=== PATIENT | male | born 1950 | race Caucasian/White ===

== ENCOUNTER 2020-12-30 12:23 | Emergency (ER) | payer OTHER ==
[~2020-12-30] VITALS: Ht 182.9 cm; Wt 104.3 kg
[2020-12-30] MEDS ORDERED: AMLODIPINE BESY10 MG PO (12:49)
[2020-12-30] MEDS ORDERED: CLOPIDOGREL75 MG PO (12:49)
[2020-12-30] MEDS ORDERED: ATORVASTATIN CA10 MG PO (13:05)
[2020-12-30] MEDS ORDERED: CARVEDILOL 25MG25 MG PO (13:05)
[2020-12-30] MEDS ORDERED: LISINOPRIL20 MG PO (13:06)
[2020-12-30] MEDS ORDERED: VITAMIN D21250 MCG PO (13:07)
[2020-12-30] MEDS ORDERED: ASPIRIN EC81 MG PO (13:08)
[2020-12-30 13:11] LABS: BASOPHIL 0.8 % (0-2); EOSINOPHIL 0.4 % (0-7); HCT 39.6 % (42.0-52.0); HGB 14.3 g/dl (13.2-18.0); LYMPHOCYTE 11.4 % (15-48); MCH 32.8 pg (25.0-31.0); MCHC 36.1 g/dL (32.0-36.0); MCV 90.8 fL (78.0-100.0); MONOCYTE 6.3 % (0-12); MPV 10.1 fL (6.0-9.5); NEUTROPHIL 79.1 % (41-80); NRBC 0; PLT 182 K/uL (150-400); RBC 4.36 M/uL (4.70-6.00); WBC 7.5 K/uL (4.0-10.5)
[2020-12-30 13:16] LABS: INR 1.07 (0.9-1.2); PROTHROMBIN TIME 13.3 SECONDS (11.8-13.4); PTT 30.9 SECONDS (24.4-34.7)
[2020-12-30 13:21] LABS: BILIRUBIN NEGATIVE (NEGATIVE); BLOOD NEGATIVE Ery/uL (NEGATIVE); CLARITY CLEAR (CLEAR); COLOR YELLOW (YELLOW); GLUCOSE (U) NORMAL (NORMAL); LEUKOCYTES NEGATIVE Leu/uL (NEGATIVE); NITRITE NEGATIVE (NEGATIVE); PROTEIN NEGATIVE (NEGATIVE); UROBILINOGEN 0.2 mg/dL (0.2-1.0)
[2020-12-30 13:24] LABS: ECSTASY (MDMA) NEGATIVE (NEGATIVE); MARIJUANA (THC) NEGATIVE (NEGATIVE); METHADONE NEGATIVE (NEGATIVE); OPIATES NEGATIVE (NEGATIVE)
[2020-12-30 13:25] LABS: AMPHETAMINES NEGATIVE (NEGATIVE); BARBITURATES NEGATIVE (NEGATIVE); OXYCODONE NEGATIVE (NEGATIVE)
[2020-12-30 13:25] LABS: ALKALINE PHOSHATASE 71 U/L (46-116); ALT 41 U/L (16-63); AST 33 U/L (15-37); BILIRUBIN - TOTAL 0.8 mg/dL (0.2-1.0); BUN 11 mg/dL (7-18); BUN/CREAT RATIO (CALC) 14.5 RATIO; CHLORIDE 97 mmol/L (98-107); CO2 (BICARBONATE) 25 mmol/L (21-32); CREATININE 0.76 mg/dL (0.67-1.17); GLOBULIN (CALCULATION) 3.9 g/dL; GLUCOSE 136 mg/dL (74-106); POTASSIUM 4.4 mmol/L (3.5-5.1); TOTAL PROTEIN 7.9 g/dL (6.4-8.2)
[2020-12-30 13:28] LABS: PRO-BNP 61 pg/mL (<125)
== END 2020-12-30 14:36 | disposition other institution (70) ==
LOC: FER 12:23
PROVIDERS: Emergency Medicine
DX: I61.1 Nontraumatic intracerebral hemorrhage in hemisphere, cortical (principal); I10 Essential (primary) hypertension; Z79.82 Long term (current) use of aspirin; Z79.02 Long term (current) use of antithrombotics/antiplatelets; Z20.822 Contact with and (suspected) exposure to COVID-19
CPT/HCPCS: 36415; 70450; 71045; 80053; 80305; 81003; 83880; 84484; 85025; 85610; 85730; 93005; G0480; J3490; U0002